=== PATIENT | female | born 2000 | race Caucasian/White ===

== ENCOUNTER 2022-07-11 11:49 | Emergency (ER) | payer BC ==
[~2022-07-11] VITALS: Ht 165.1 cm; Wt 79.5 kg
--- NOTE | 2022-07-11 12:13 | ED General ---
General Chief Complaint: General Problems/Pain Stated Complaint: BODY ACHES, FLU B History of Present Illness Date Seen by Provider: Jul 11, 2022 Time Seen by Provider: 12:00 Initial Comments Patient is a previously healthy 21 yo F who presents to the ED with ~10 days of fatigue, body aches, intermittent fever, and malaise. She was seen at a walk in clinic on Tuesday where she reports she tested positive for mono and influenza B. She endorses swollen lymph nodes in her neck and feeling like her tonsils are large. Last fever was on . States she has been taking Tylenol for the symptoms. Was placed on Amoxicillin, prednisone, and Doxycycline by the clinic. She states they placed her on the antibiotics for "walking pneumonia." Finished her prednisone yesterday. She states none of the medications are making her feel any better. LMP ended yesterday. Allergies and Home Medications Allergies Coded Allergies: No Known Drug Allergies (Unverified , 07/11/22) Patient Home Medication List Home Medication List Reviewed: Yes Review of Systems Review of Systems Constitutional: fever, malaise EENTM: see HPI Respiratory: no symptoms reported Cardiovascular: no symptoms reported Gastrointestinal: no symptoms reported Genitourinary: no symptoms reported Musculoskeletal: muscle pain (body aches) Skin: no symptoms reported Physical Exam Vital Signs Vital Signs - First Documented 07/11/22 11:55 Temp 37.3 Pulse 106 Resp 18 B/P (MAP) 136/109 (118) Pulse Ox 96 O2 Delivery Room Air Capillary Refill : Height, Weight, BMI Height: '" Weight: lbs. oz. kg; BMI Method: General Appearance: No Apparent Distress, WD/WN HEENT: PERRL/EOMI, TMs Normal, Normal ENT Inspection, Pharynx Normal Neck: Full Range of Motion, Normal Inspection, Non Tender, Supple Respiratory: Chest Non Tender, Lungs Clear, Normal Breath Sounds Cardiovascular: Regular Rate, Rhythm, Tachycardia (mild) Gastrointestinal: Normal Bowel Sounds Back: Normal Inspection, No CVA Tenderness Extremity: Normal Capillary Refill, Normal Inspection Neurologic/Psychiatric: Alert, Oriented x3, No Motor/Sensory Deficits, Normal Mood/Affect Skin: Normal Color, Warm/Dry Progress/Results/Core Measures Suspected Sepsis SIRS Temperature: Pulse: Respiratory Rate: Blood Pressure / Mean: Results/Orders Lab Results Laboratory Tests Test 07/11/22 12:13 Range/Units Urine Color [place] H Urine Clarity CLOUDY Urine pH 6.5 5-9 Urine Specific [place] 1.020 1.016-1.022 Urine Protein 1+ H NEGATIVE Urine Glucose (UA) TRACE H NEGATIVE Urine Ketones NEGATIVE NEGATIVE Urine Nitrite POSITIVE H NEGATIVE Urine Bilirubin 2+ H NEGATIVE Urine Urobilinogen 2.0 < = 1.0 MG/DL Urine Leukocyte Esterase NEGATIVE NEGATIVE Urine RBC (Auto) NEGATIVE NEGATIVE Urine RBC NONE /HPF Urine WBC RARE /HPF Urine Squamous Epithelial Cells 5-10 /HPF Urine Crystals NONE /LPF Urine Bacteria FEW H /HPF Urine Casts NONE /LPF Urine Mucus SMALL H /LPF Urine Culture Indicated YES Urine Test NEGATIVE NEGATIVE My Orders Orders - SEVERO PENNY [employer] Urinalysis (07/11/22 12:12) Hcg,Qualitative Urine (07/11/22 12:12) Urine Culture (07/11/22 12:13) Vital Signs/I&O 07/11/22 07/11/22 11:55 12:16 Temp 37.3 Pulse 106 Resp 18 B/P (MAP) 136/109 (118) Pulse Ox 96 O2 Delivery Room Air Room Air Capillary Refill : Progress Note : Progress Note Patient is nontoxic and well hydrated on exam. Vital signs notable for mild tachycardia. Patient has exudate on bilateral tonsils with mild swelling. Ant erior cervical adenopathy appreciated. Symptoms are c/w viral etiology especially mono given symptoms and reported positive test. Possible that she concurrently has influenza given positive test but this could be a false positive. Either way this will not change treatment. No adventitious lung sounds noted on exam. I feel like she is unlikely to have bacterial pneumonia at this time but instructed her to complete the antibiotics as prescribed. Urinalysis nitrite positive but only a few bacteria were noted on the UA. Will hold initiating further antibiotic therapy until culture results. Patient denies any specific urinary symptoms other than feeling her urine is darker than normal. Patient given IM ketorolac and will be d/c'd home with NSAID. Supportive care and anticipatory guidance discussed. Follow-up with PCP. Return precautions for urgent symptomology discussed. Patient verbalized understanding. Departure Impression Primary Impression: Mononucleosis Qualified Codes: B27.90 - Infectious mononucleosis, unspecified without complication Additional Impression: Viral syndrome Disposition: HOME, SELF-CARE Condition: Stable Departure-Patient Inst. Decision time for Depature: 12:45 Referrals: STEFANY RESTREPO MD (PCP/Family) Primary Care Physician Patient Instructions: Mononucleosis, Viral Syndrome (DC) Scripts Ibuprofen (Ibuprofen) 600 Mg Tablet 600 MG PO Q6H PRN for PAIN-MILD for 5 Days, #20 TAB Prov: SEVERO PENNY APRN 07/11/22 SEVERO PENNY APRN Jul 11, 2022 12:13
[2022-07-11 12:23] LABS: CLARITY,URINE CLOUDY; COLOR,URINE AMBER; GLUCOSE, URINE (UA) TRACE (NEGATIVE); KETONES,URINE NEGATIVE (NEGATIVE); LEUKOCYTE ESTERASE ,URINE NEGATIVE (NEGATIVE); NITRITE,URINE POSITIVE (NEGATIVE); PH,URINE 6.5 (5-9); PROTEIN,URINE 1+ (NEGATIVE)
[2022-07-11 12:39] LABS: BACTERIA,URINE FEW /HPF; BILIRUBIN,URINE 2+ (NEGATIVE); WBC,URINE RARE /HPF
[2022-07-11] MEDS ORDERED: IBUP-1773 PO (12:53)
[2022-07-11] MEDS ORDERED: KETOROLAC 30 MG/ML VIAL IM ONE (13:15)
[2022-07-11 13:27] VITALS: BP 136/109
== END 2022-07-11 13:27 | disposition home or self-care (01) ==
LOC: ER 11:52
DX: B34.9 Viral infection, unspecified (principal); B27.90 Infectious mononucleosis, unspecified without complication; R00.0 Tachycardia, unspecified; Z28.310 Unvaccinated for COVID-19
CPT/HCPCS: 81000; 84703; 87088; 99284

== ENCOUNTER → 2022-07-28 | Outpatient (CLI) | payer BC ==
[~2022-07-28] MED LIST: CATHETER FLUSH 10 ML SYR IV PRN; HOLD METFORMIN - RECEIVED CONTRAST 20 ML VIAL IV SCH; IBUP-1773 PO; IOHEXOL 350 MG/ML 100 ML (OMNIPAQUE 350) VIAL IV ONE; NS 100 ML (IVPB) BAG IV ONE
--- NOTE | 2022-07-28 11:41 | Diagnostic Imaging Report ---
PROCEDURE: CT chest with and without contrast. TECHNIQUE: Multiple contiguous axial images were obtained through the chest before and after administration of intravenous contrast. Auto Exposure Controls were utilized during the CT exam to meet ALARA standards for radiation dose reduction. INDICATION: History of sarcoma, shoulder pain. COMPARISON: There are no prior studies available for comparison. FINDINGS: Reportedly, there is clinical concern regarding an abnormality of the right shoulder. There is no fracture, dislocation or acute bony abnormality of the right shoulder appreciated. The soft tissues about the right shoulder and in the right axilla are unremarkable. There is mild asymmetry of the pectoralis musculature on the right compared to the left. This may be a developmental variant. The bone windows through the remainder of the thorax and spine are also unremarkable. There is no fracture or destructive lesion identified. The heart size is within normal limits. The aorta and the pulmonary arteries were not well opacified on the post contrast series but there is no sign of an aneurysm of the aorta nor is there any evidence for dissection. There is no definite defect within the pulmonary arteries to indicate a pulmonary embolus either. There is no mediastinal or hilar adenopathy. The thyroid gland where visualized is unremarkable. The lungs are generally clear and well aerated. There is no sign of failure, pneumonia or pleural effusion to indicate an acute abnormality. The images through the upper abdomen show that both the liver and spleen do appear to be enlarged. There is no obvious breast mass. IMPRESSION: 1. There is no acute abnormality of the right shoulder. There is no mass lesion identified nor is there any axillary adenopathy. 2. There is no acute cardiopulmonary abnormality noted. 3. There is hepatosplenomegaly. This is of uncertain etiology. 4. These results were discussed with Dr. Crabtree. Dictated by: Dictated on workstation # [id number]
== END ==
LOC: RAD 10:28
PROVIDERS: ATTEND Nurse Practitioner Family
DX: R16.2 Hepatomegaly with splenomegaly, not elsewhere classified (principal); M25.511 Pain in right shoulder; R59.0 Localized enlarged lymph nodes; Z85.831 Personal history of malignant neoplasm of soft tissue
CPT/HCPCS: 71270